=== PATIENT | female | born 1985 | race Caucasian/White ===

== ENCOUNTER 2017-12-22 10:22 | Emergency (ER) | payer BC ==
[~2017-12-22] VITALS: Ht 167.6 cm; Wt 66.7 kg
[2017-12-22] MEDS ORDERED: MEDROL DOSEPAK4 MG PO (10:45)
[2017-12-22 11:13] VITALS: BP 143/82
[2017-12-23] MEDS ORDERED: PEPCID20 MG PO (08:45)
[2017-12-23] MEDS ORDERED: ATARAX,VISTARIL50 MG PO (08:45)
== END 2017-12-22 11:14 | disposition home or self-care (01) ==
LOC: EME 10:22 → EDBD 10:22 → EME 11:14
DX: L30.9 Dermatitis, unspecified (principal)
CPT/HCPCS: 99281; 99283; J7512

== ENCOUNTER 2017-12-23 07:37 | Emergency (ER) | payer BC ==
[~2017-12-23] VITALS: Ht 167.6 cm; Wt 66.1 kg
[~2017-12-23 07:37] MED LIST: MEDROL DOSEPAK4 MG PO
[2017-12-23 08:19] LABS: BASOPHIL (%) 0.1 % (0-1); EOSINOPHIL (%) 0 % (0-5); HEMATOCRIT 43.2 % (36.0-46.0); IMMATURE GRANULOCYTE (%) 0.3 % (0.0-0.7); LYMPHOCYTE (%) 23.1 % (15-42); LYMPHOCYTE COUNT 1.6 K/uL (1.0-2.8); MCH 31.5 PG (29.0-34.0); MCHC 34.7 G/DL (30.0-36.0); MCV 90.8 FL (83-99); MONOCYTE COUNT 0.6 K/uL (0-0.8); NEUTROPHIL (%) 67.5 % (45-76); NEUTROPHIL COUNT 4.7 K/uL (1.8-6.4); PLATELET COUNT 293 K/uL (156-360); RBC DIS.WIDTH-CV 12.8 % (11.8-14.6); RBC DIS.WIDTH-SD 42.5 % (39-53); RED BLOOD COUNT 4.76 M/uL (3.80-5.20)
[2017-12-23 08:27] LABS: CHLORIDE 114 mEq/L (99-109); POTASSIUM 3.9 mEq/L (3.7-5.4); SODIUM 140 mEq/L (136-147)
[2017-12-23 08:29] LABS: GLUCOSE 88 mg/dL (70-99)
[2017-12-23 08:33] LABS: GFR ESTIMATE (CALCULATED) > 59 mL/min/
[2017-12-23 08:34] LABS: UREA NITROGEN (BUN) 11 mg/dL (9-23)
[2017-12-23] MEDS ORDERED: PEPCID20 MG PO (08:45)
[2017-12-23] MEDS ORDERED: ATARAX,VISTARIL50 MG PO (08:45)
[2017-12-23 09:13] VITALS: BP 128/72
== END 2017-12-23 09:15 | disposition home or self-care (01) ==
LOC: EME 07:37
PROVIDERS: Emergency Medicine
DX: L30.9 Dermatitis, unspecified (principal); R21 Rash and other nonspecific skin eruption; F32.9 Major depressive disorder, single episode, unspecified; F42.9 Obsessive-compulsive disorder, unspecified; F41.9 Anxiety disorder, unspecified
CPT/HCPCS: 80048; 85025; 99281; 99284